=== PATIENT | male | born 1960 | race Caucasian/White ===

== ENCOUNTER 2020-05-13 07:27 | Day surgery (SDC) | payer OTHER ==
--- OUTSIDE RECORDS SUMMARY | 2020-05-13 07:30 | XMS REPORT | Continuity of Care Document ---
:1960 Author Organization [email or web address] Care Team Providers Name Role Phone [email or web address] Unavailable Un available Problems Problem Status Onset Classification Date Comments Sourc e Date Reported Pain in [place]/28/2017 [place] [facility] [place] [address] [place] [address] [place] [facility] Other fall 12/28/2017 [facility] from one Medical level to Center another, initial encounter Medications Medication Details Route Status Patient Ordering Order Source Instructions Provider Date tramadol 50 mg = 1 No Longer [place] hydrochloride 50 tab, PO, Active 018 [facility]ica l MG Oral Tablet Q6H, PRN Center Pain, X 10 day, # 40 tab, 0 Refill(s) Diazepam 5 MG 5 mg = 1 [place] tab, PO, Active 018 [facility] [Valium] TID, PRN Center Muscle Spasms, X 7 day, # 21 tab, 0 Refill(s) tramadol 50 mg = 1 Inactive [place] hydrochloride 50 tab, PO, 018 Medica l MG Oral Tablet Q6H, PRN Center Pain, X 10 day, # 40 tab, 0 Refill(s) Ibuprofen 400 MG 400 mg = 1 No Longer [place] Oral Tablet tab, PO, Active 018 Medical Q6H, PRN Center Pain or Fever, Take with food, X 10 day, # 40 tab, 0 Refill(s) Diazepam 5 MG 5 mg = 1 Inactive [place] Oral Tablet tab, PO, 018 Medical [Valium] TID, PRN Center Anxiety, X 7 day, # 21 tab, 0 Refill(s) tramadol 50 mg = 1 Inactive [place] hydrochloride 50 tab, PO, 018 Medica l MG Oral Tablet Q6H, PRN Center Pain, X 10 day, # 40 tab, 0 Refill(s) Diazepam 5 MG 5 mg = 1 Inactive [facility] Oral Tablet tab, PO, 018 Medical [Valium] TID, PRN Center Anxiety, X 7 day, # 21 tab, 0 Refill(s) Ibuprofen 400 MG 400 mg = 1 No Longer [facility] Oral Tablet tab, PO, Active 018 Medical Q6H, PRN Center Pain or Fever, Take with food, X 10 day, # 40 tab, 0 Refill(s) Tramadol Notes: Not Inactive [facility] to exceed 018 Medical 400mg/day. Center (Same As: [facility]) Valium Notes: Inactive [facility] (Same as: 018 Medical Valium) Center Ibuprofen Notes: Inactive [facility] (Same as: 018 Medical Motrin) [place] "Do Not Crush" Give with food. Allergies, Adverse Reactions, Alerts No Known Medication Allergies Immunizations No Data Provided for This Section Results No Data Provided for This Section Pathology Reports No Data Provided for This Section Diagnostic Reports No Data Provided for This Section Consultation Notes No Data Provided for This Section Discharge Summaries No Data Provided for This Section History and Physicals No Data Provided for This Section Vital Signs Vital Sign Value Date Comments Source Systolic (mm Hg) 136 09/21/2017 [facility] [place] Diastolic (mm Hg) 94 09/21/2017 [facility] Respitory Rate 20 09/21/2017 [facility] Heart Rate 77 09/21/2017 [facility] Temperature Oral (F) 98.2 F 09/21/2017 [facility] Weight 90.909 09/21/2017 [facility] BMI Calculated 27.95 09/21/2017 [facility] Height 180.34 cm 09/21/2017 [facility] Temperature Oral (F) 97.8 F 09/21/2017 [facility] Heart Rate 80 09/21/2017 [facility] Respitory Rate 18 09/21/2017 [facility] Systolic (mm Hg) 150 09/21/2017 [facility] dical [place] Diastolic (mm Hg) 120 09/21/2017 [facility] Encounters Location Location Encounter Encounter Reason Attending ADM [place] Stat us Source Details Type Number For Provider Date Date Visit [place] [id number] Sanjiv 09/21 09/21 Stacie Kennedy [place] /2017 [facility] Procedures No Data Provided for This Section Assessment and Plan No Data Provided for This Section Plan of Care No Data Provided for This Section Social History Social History Date Source Social History TypeResponse 09/21/2017 [facility] Smoking Status Current every day smoker; Type: Cigarett es; Exposure to Tobacco Smoke None; Cigarette Smoking Last 365 Days Yes; Reg Smoking Cessation Counseling No entered on: 09/21/17 Family History No Data Provided for This Section Advance Directives No Data Provided for This Section Functional Status No Data Provided for This Section
--- OUTSIDE RECORDS SUMMARY | 2020-05-13 07:31 | XMS REPORT | Continuity of Care Document ---
:1960 Author Organization [facility] t Address [address] [place] [address] Care Team Providers Name Role Phone Everardo Ny Attending Clinician Problems Condition Condition Condition Status Onset Resolution Last Treating Co mments Source Name Details Category Date Date Treatment Clinician Date BACK AND Diagnosis Active 2017-09-22 [facility] LEG PAIN 2-24 12:30:00 l BACK AND 00:00: Sam n LEG PAIN 00 Active 09/21/2017 [facility] Other fall Problem 2017-12-28 [place] [facility] from one 12:39:13 l level to Other [place] another, fall from initial one level encounter to another, initial encounter 12/28/2017 [facility] Pain in Problem 2017-2017-12-28 2017-12-28 [facility] right leg 2-24 12:39:13 12:39:13 l Pain in 06:00: [place] right leg 00 09/21/2017 12/28/2017 [facility] Low back Problem 2017-2017-12-28 2017-12-28 [facility] pain 2-24 12:39:13 12:39:13 l Low back 06:00: Sam n pain 00 09/21/2017 12/28/2017 [facility] Allergies, Adverse Reactions, Alerts This patient has no known allergies or adverse reactions. Social History Smoking Status Start Date Stop Date Source Social History 2017-09-21 18:11:57 [facility] Medications Ordered Filled Start Stop Current Ordering Indication Dosage Frequency Signature Comments Components Source Medication Medication Date Date Medication? Clinician (SIG) Name Name tramadol No 50 mg = 1 Steven anabell hydrochlori 2-24 tab, PO, l de 50 MG 19:48: Q6H, PRN Gi nn Oral Tablet 00 Pain, X 10 day, # 40 tab, 0 Refill(s) Diazepam 5 2018 No 5 mg = 1 Mem oria MG Oral 2-24 tab, PO, l Tablet 19:47: TID, PRN [place] [Valium] 00 Muscle Spasms, X 7 day, # 21 tab, 0 Refill(s) tramadol No 50 mg = 1 Steven anabell hydrochlori 2-24 tab, PO, l de 50 MG 19:46: Q6H, PRN Gi nn Oral Tablet 00 Pain, X 10 day, # 40 tab, 0 Refill(s) Ibuprofen No 400 mg = 1 Me moria 400 MG Oral 2-24 tab, PO, l Tablet 19:46: Q6H, PRN [place] 00 Pain or Fever, Take with food, X 10 day, # 40 tab, 0 Refill(s) Diazepam 5 2018 No 5 mg = 1 Mem oria MG Oral 2-24 tab, PO, l Tablet 19:46: TID, PRN [place] [Valium] 00 Anxiety, X 7 day, # 21 tab, 0 Refill(s) tramadol No 50 mg = 1 Steven anabell hydrochlori 2-24 tab, PO, l de 50 MG 19:24: Q6H, PRN Gi nn Oral Tablet 00 Pain, X 10 day, # 40 tab, 0 Refill(s) Diazepam 5 2018 No 5 mg = 1 Mem oria MG Oral 2-24 tab, PO, l Tablet 19:24: TID, PRN [place] [Valium] 00 Anxiety, X 7 day, # 21 tab, 0 Refill(s) Ibuprofen No 400 mg = 1 Me moria 400 MG Oral 2-24 tab, PO, l Tablet 19:23: Q6H, PRN [place] 00 Pain or Fever, Take with food, X 10 day, # 40 tab, 0 Refill(s) Tramadol No Notes: Not Mem oria 2-24 to exceed l 18:22: 400mg/day. [place] 00 (Same As: Ultram) Valium No Notes: Memoria 2-24 (Same as: l 18:21: Valium) [place] 00 Ibuprofen No Notes: Memori a 2-24 (Same as: l 18:21: Motrin) [place] 00 "Do Not Crush" Give with food. Vital Signs Vital Name Observation Time Observation Value Comments Source Systolic (mm Hg) 2017-09-21 19:58:00 Steven rial [place] Diastolic (mm Hg) 2017-09-21 19:58:00 Mem orial [place] Respitory Rate 2017-09-21 19:58:00 Memori al [place] Heart Rate 2017-09-21 19:58:00 [facility] [place] Temperature Oral (F) 2017-09-21 19:58:00 98.2 F [facility] [place] Weight 2017-09-21 17:55:00 [facility] BMI Calculated 2017-09-21 17:55:00 Memori al [place] Height 2017-09-21 17:55:00 180.34 cm [facility] [place] Temperature Oral (F) 2017-09-21 17:55:00 97.8 F [facility] Heart Rate 2017-09-21 17:55:00 [facility] [place] Respitory Rate 2017-09-21 17:55:00 Memori al [place] Systolic (mm Hg) 2017-09-21 17:55:00 Steven rial [place] Diastolic (mm Hg) 2017-09-21 17:55:00 Mem orial [place] Procedures This patient has no known procedures. Encounters Start End Encounter Admission Attending Care Care Encounter Source Date/Time Date/Time Type Type Clinicians Facility Department ID 2017-09-21 2017-09-21 [id number] 11:54:00 14:00:00 Sanjiv 00 Luke Results This patient has no known results.
[2020-05-13] MEDS ORDERED: Ringers Lactate 1,000 ML IV ONE (07:52)
[2020-05-13] MEDS ORDERED: CEFAZOLIN/SWI 1gm 1 GM/10 ML SYR ONE (07:53)
[2020-05-13] MEDS ORDERED: BUPIVACA 0.25%/EPI 0.0005% MDV 50 ML VIAL ONE (08:41)
[2020-05-13] MEDS ORDERED: MIDAZOLAM HCL 2 MG/2 ML INJ ONE (09:12)
[2020-05-13] MEDS ORDERED: dexAMETHasone 10 MG/ML VIAL ONE (09:12)
[2020-05-13] MEDS ORDERED: propofoL 200 MG/20 ML VIAL IV ONE (09:12)
[2020-05-13] MEDS ORDERED: FENTANYL CITR 100 MCG/2 ML ONE (09:12)
[2020-05-13] MEDS ORDERED: LIDOCAINE 2% MPF 5 ML VIAL ONE (09:13)
[2020-05-13] MEDS ORDERED: ROCURONIUM 50 MG/5 ML VIAL IV ONE (09:36)
[2020-05-13] MEDS ORDERED: KETOROLAC 30 MG/ML INJ ONE (10:07)
--- NOTE | 2020-05-13 10:07 | P.OP ---
Preoperative diagnosis: Umbilical Hernia Postoperative diagnosis: Umbilical Hernia Primary procedure: Open Repair of Umbilical Hernia with Mesh Anesthesia: GETA + Local Estimated blood loss: <5cc Specimen: umbilical fat Findings: 1cm umbilical hernia Complications: None Implants: Bard round mesh 4.3 cm Ventralite Transferred to: Recovery Room Condition: Good
[2020-05-13] MEDS ORDERED: GLYCOPYRROLATE 0.2 MG/ML SYR ONE (10:12)
[2020-05-13] MEDS ORDERED: NEOSTIGMINE 1 MG/ML -5 ML ONE (10:17)
[2020-05-13] MEDS: MORPHINE 4 MG/ML SYR ONE ×4 (10:34→10:56)
--- NOTE | 2020-05-13 10:46 | OP ---
Date of Procedure: 05/13/2020 Surgeon: Quoc Duffy MD, Preoperative Diagnosis: Umbilical hernia. Postoperative Diagnosis: Umbilical hernia. Procedure: An open umbilical hernia repair with mesh. Anesthesia: General endotracheal plus local with 0.25% Marcaine with epinephrine. Estimated Blood Loss: 5 mL. Specimen: Umbilical fat. Findings: 1 cm umbilical hernia. Complications: None. Implants: Bard Ventralight round 4.3 cm mesh with strap. The patient transferred to recovery room in good condition. Procedure In Detail: After informed consent obtained, the patient was brought to the operating room, prepped and draped in the usual sterile fashion. After adequate anesthesia was achieved, a curvilin ear infraumbilical incision was made down to subcutaneous tissue. After appropriate anesthetizing th e skin, dissection was continued down to expose the hernia sac. This was opened sharply and preperit mccray fat was dissected free using electrocautery. This was removed and sent off for identification. After this completely cleared, a finger sweep was performed to ensure there was appropriate landing strip. The defect was approximately 1 cm in size, I found a 4.3 cm Bard Ventralight round mesh appr opriate size. I then hydrated it and using the strap parachuted using a 0 PDS suture circumferential ly around and parachuted in the mesh. Elevated and secured the mesh to the abdominal wall in the pre peritoneal position. I then closed the fascia over the top using an interrupted 0 PDS suture. I irr igated the area copiously and closed the deep dermal space with a 3-0 Vicryl in an interrupted fashio n and closed the skin with 4-0 Monocryl in a running fashion. Dermabond was placed over top. The pa tient tolerated the procedure without evidence of complication, transferred to PACU in good condition . All counts were correct at the end of the case. ELIZABTEH/BETO Voice ID: [id number] Report ID: [id number]
[2020-05-13] MEDS ORDERED: ONDANSETRON 4 MG/2 ML VIAL ONE (11:04)
[2020-05-13] MEDS ORDERED: HYDROCODONE/APAP 10/325 TAB ONE (12:05)
[2020-05-13] MEDS ORDERED: PROMETHAZINE INJ 25 MG/ML AMP ONE (12:55)
[2020-05-13] MEDS ORDERED: NA CHLORIDE 0.9% 500 ML ONE (12:56)
[2020-05-13 15:01] VITALS: BP 117/68; TEMP 97; O2SAT 95
== END 2020-05-13 13:15 | disposition home or self-care (01) ==
LOC: OR 07:27
PROVIDERS: ATTEND Surgery
PROC: 0WUF0JZ Supplement Abdominal Wall with Synthetic Substitute, Open Approach (ICD-10-PCS; principal; 2020-05-13 08:30)
DX: K42.0 Umbilical hernia with obstruction, without gangrene (principal); Z20.828 Contact with and (suspected) exposure to other viral communicable diseases
CPT/HCPCS: 88302; 49585; U0002; J2704; J2550; J2250; J3010; J1100; J2710; J0690; J7120; J7040; J2405